=== PATIENT | female | born 1940 | race Caucasian/White ===

== ENCOUNTER 2017-12-16 14:35 | Emergency (ER) | payer MEDICARE ==
[~2017-12-16] VITALS: Ht 162.6 cm; Wt 67.8 kg
[~2017-12-16 14:35] MED LIST: CALCCAP4; CARB300C2 PO; DIOV80TA4 PO; LEVE500T10 PO; PROP60CA PO; TAB-TAB PO; VITA-13 PO
[2017-12-16 14:40] VITALS: BP 211/100; PULSE 64; RESP 18; TEMP 97.8; O2SAT 96
[2017-12-16] MEDS ORDERED: VALS1TAB64 PO (14:53)
[2017-12-16] MEDS ORDERED: CARB300C7 PO ×2 (14:53)
[2017-12-16] MEDS ORDERED: PROP60CA PO (14:53)
[2017-12-16] MEDS ORDERED: LEVE500T8 PO (14:53)
[2017-12-16] MEDS ORDERED: FOSA70TA PO (14:54)
--- NOTE | 2017-12-16 15:32 | PD ---
HPI . Right lower extremity swelling Chief Complaint: Hypertension Time Seen by Provider: 14:53 Travel History International Travel<30 days: No Contact w/Intl Traveler<30days: No Traveled to known affect area: No History of Present Illness HPI Patient presents with chief complaint of swelling of her right leg. Onset was a week ago. Her swelling gets worse after she has been up on her leg all day and gets better after sleeping at night. She states that the swelling does not ever go completely away. She is concerned that the swelling is secondary to a new medication. She is was recently started on Fosamax for osteoporosis. That was started on 11/23. In addition, the patient reports that her blood pressure is labile. She does not have any chest pain. She reports chronic shortness of breath. It is unchanged. She has no neurological complaints. PFSH Past Medical History Asthma: Yes Heart Rhythm Problems: No Cancer: Yes (SKIN) Cardiovascular Problems: Yes High Cholesterol: No Chest Pain: No Congestive Heart Failure: No COPD: Yes Cerebrovascular Accident: No Diabetes: No Diminished Hearing: No Endocrine: No Gastrointestinal Disorders: Yes GERD: No Genitourinary: Yes Hepatitis: No Hiatal Hernia: No Hypertension: Yes Immune Disorder: Yes (SHINGLES) Kidney Stones: No Musculoskeletal: No Neurologic: Yes Psychiatric: No Reproductive: No Respiratory: Yes Immunizations Current: Yes Migraines: No Renal Failure: No Seizures: Yes Sleep Apnea: No Thyroid Disease: No Ulcer: No Tubal Ligation: Yes Past Surgical History Abdominal Surgery: No AICD: No Cardiac Surgery: No Ear Surgery: No Endocrine Surgery: Yes (THYROIDECTOMY) Eye Surgery: No Genitourinary Surgery: No Gynecologic Surgery: Yes (HYSTERECTOMY) Hysterectomy: Yes Joint Replacement: No Neurologic Surgery: Yes (FOR SEIZURES 2001, BRAIN SURGERY 1999) Oral Surgery: No Pacemaker: No Thoracic Surgery: Yes (WEDGE RESECTION RT LUNG) Tonsillectomy: Yes Other Surgery: Yes Social History Alcohol Use: No Tobacco Use: No Substance Use: No Allergies-Medications (Allergen,Severity, Reaction): Coded Allergies: Sulfa (Sulfonamide Antibiotics) (Unverified Allergy, Severe, GRAND MAL SEIZURES, 12/16/17) codeine (Unverified Allergy, Severe, GRAND MAL SEIZURE, 12/16/17) Reported Meds & Prescriptions Reported Meds & Active Scripts Active Reported Fosamax (Alendronate Sodium) 70 Mg Tab 70 Mg PO Q7D Carbamazepine ER 12 HR (Carbamazepine) 300 Mg Cap 300 Mg PO HS Carbamazepine ER 12 HR (Carbamazepine) 300 Mg Cap 600 Mg PO DAILY Propranolol ER 24 HR (Propranolol HCl) 60 Mg Cap 60 Mg PO DAILY Levetiracetam 500 Mg Tab 500 Mg PO BID Valsartan 80 Mg Tab 80 Mg PO BID Review of Systems Except as stated in HPI: all other systems reviewed are Neg HENT: No: Headaches Cardiovascular: No: Chest Pain or Discomfort Respiratory: Positive: Shortness of Breath (Chronic shortness of breath) Musculoskeletal: Positive: Arthralgias, Edema Physical Exam Narrative GENERAL: Awake and alert and in no distress. SKIN: warm/dry. Normal skin color. HEAD: Normocephalic. Atraumatic. EYES: Pupils equal and round. Extraocular movements are intact. ENT: Mucous membranes pink and moist. NECK: Supple. Full range of motion without pain.. CARDIOVASCULAR: Regular rate and rhythm. Heart sounds are normal. RESPIRATORY: No accessory muscle use. Clear to auscultation. Breath sounds are diminished on the left. MUSCULOSKELETAL: No obvious deformities. Normal muscle tone. She has visible swelling of the right lower extremity. She has some tenderness of both the right knee and right ankle. There is no deformity. She is distally neurovascularly intact. NEUROLOGICAL: Awake and alert. No obvious cranial nerve deficits. Motor grossly within normal limits. Normal speech. PSYCHIATRIC: Appropriate mood and affect; insight and judgment normal. Data Data Last Documented VS Vital Signs Date Time Temp Pulse Resp B/P (MAP) Pulse Ox O2 Delivery O2 Flow Rate FiO2 12/16/17 14:40 97.8 64 18 211/100 (137) 96 Orders Orders Ankle, Complete (Oop4rtf) (12/16/17 15:09) Knee, Complete (4vws) (12/16/17 15:09) Us Leg Venous Doppler (12/16/17 15:09) [facility] Medical Decision Making Medical Screen Exam Complete: Yes Emergency Medical Condition: Yes Differential Diagnosis Differential diagnosis of leg pain includes but is not limited to lumbar radiculopathy, arthritis, myalgias, DVT. Narrative Course This patient presents with pain and swelling of her right lower leg. An x-ray of her knee and ankle are pending as is an ultrasound of her leg. Last Impressions Lower Extremity Ultrasound 12/16/17 6661 Signed Impressions: CONCLUSION: The study is negative for lower extremity deep venous thrombosis. Knee X-Ray 12/16/17 1509 Signed Impressions: CONCLUSION: Chronic changes and no definite fracture for technique. Ankle X-Ray 12/16/17 1509 Signed Impressions: CONCLUSION: Slight osteopenia and diffuse edema. I suspect that her symptoms are related to arthritis. Diagnosis Primary Impression: Right leg swelling Additional Impression: Arthritis Patient Instructions: Arthritis (ED), General Instructions Additional Instructions: I suggest ice and elevation for pain and swelling of your leg. Disposition: 01 DISCHARGE HOME Condition: Stable Irina Mcdonald MD Dec 16, 2017 15:32
--- NOTE | 2017-12-16 15:52 | RADRPT ---
EXAM DATE: 12/16/2017 3:38 PM EDT AGE/SEX: 77 years / Female INDICATIONS: Right knee pain, swelling for 2 days with no known injury CLINICAL DATA: This is the patient's initial encounter. Patient reports that signs and symptoms have been present for 2 days and indicates a pain score of 5/10. MEDICAL/SURGICAL HISTORY: None. None. COMPARISON: No prior exams available for comparison. FINDINGS: No definite fractures, or dislocations are identified. No definite lytic or sclerotic les ion is seen. Moderate osteopenia is seen. Significant degenerative arthritis is seen in the lateral c ompartment, to a slight degree medial compartment and patellofemoral joint. CONCLUSION: Chronic changes and no definite fracture for technique. Electronically signed by: Lisa Jackson MD 12/16/2017 3:51 PM EDT
--- NOTE | 2017-12-16 15:52 | RADRPT ---
EXAM DATE: 12/16/2017 3:32 PM EDT AGE/SEX: 77 years / Female INDICATIONS: Right ankle pain, swelling for 2 days with no known injury CLINICAL DATA: This is the patient's initial encounter. Patient reports that signs and symptoms have been present for 1 day and indicates a pain score of 5/10. MEDICAL/SURGICAL HISTORY: None. None. COMPARISON: No prior exams available for comparison. FINDINGS: No definite fractures, or dislocations are identified. No definite lytic or sclerotic les ion is seen. Slight osteopenia is seen. Diffuse subcutaneous edema is seen. CONCLUSION: Slight osteopenia and diffuse edema. Electronically signed by: Lisa Jackson MD 12/16/2017 3:50 PM EDT
--- NOTE | 2017-12-16 15:54 | RADRPT ---
EXAM DATE: 12/16/2017 3:44 PM EDT AGE/SEX: 77 years / Female INDICATIONS: Swelling right leg. CLINICAL DATA: This is the patient's initial encounter. Patient reports that signs and symptoms have been present for 1 day and indicates a pain score of 0/10. MEDICAL/SURGICAL HISTORY: Chronic obstructive pulmonary disease. Hypertension. Asthma. Skin can cer. Seizures. Pleural effusion right lung. Shingles. Sarcoidosis. Post-inflammatory pulmonary fibros is. Bronchiectasis. Tonsillectomy. Hysterectomy. Tubal ligation. Thyroidectomy. Wedge resection R T lung. Brain surgery. COMPARISON: No prior [place] exams available for comparison. TECHNIQUE: Venous ultrasound of both lower extremities was performed from the inguinal ligament to t he proximal calf. Real-time, color Doppler and spectral tracing, compression and augmentation techni ques were used. FINDINGS: There is normal compressibility of the deep venous system from the inguinal region to the proximal ca lf. No echogenic clot is seen in the lumen of the common femoral, femoral, popliteal, and posterior tibial veins. There is a normal response of the venous system to proximal and distal augmentation an d respiration. CONCLUSION: The study is negative for lower extremity deep venous thrombosis. Electronically signed by: Gurjit Birch MD 12/16/2017 3:53 PM EDT
[2017-12-16 16:16] VITALS: BP 188/80
== END 2017-12-16 16:17 | disposition home or self-care (01) ==
LOC: PHED 14:35
DX: M19.90 Unspecified osteoarthritis, unspecified site (principal); I10 Essential (primary) hypertension; J44.9 Chronic obstructive pulmonary disease, unspecified; M81.0 Age-related osteoporosis without current pathological fracture; Z85.828 Personal history of other malignant neoplasm of skin
CPT/HCPCS: 73564; 73610; 93971; 99284

== ENCOUNTER 2018-07-12 08:59 | Observation (INO) ==
--- NOTE | 2018-07-12 09:30 | ED ---
HPI General Chief Complaint: Shortness of Breath/Dyspnea Stated Complaint: SoB Time Seen by Provider: 07/12/18 09:06 Source: patient Mode of arrival: ambulatory Limitations: no limitations History of Present Illness 78 yo F c/o dyspnea overnight with cough. Orthopnea reported and [place]. No cp. No fever. Copious mucous production reported from a few days ago. Urination normal. Duration about 12 hours. Timing constant. PMH includes epilepsy and HTN. Related Data Home Medications Medication Instructions Recorded Confirmed carbamazepine 300 mg PO BID 07/12/18 07/12/18 levetiracetam 500 mg PO DAILY NEB 07/12/18 07/12/18 propranolol 1 mg/kg PO DAILY 07/12/18 07/12/18 valsartan 80 mg PO DAILY 07/12/18 07/12/18 Allergies Allergy/AdvReac Type Severity Reaction Status Date / Time codeine Allergy Severe GRAND MAL Unverified 12/16/17 14:37 SEIZURE Sulfa (Sulfonamide Allergy Severe GRAND MAL Unverified 12/16/17 14:37 Antibiotics) SEIZURES Review of Systems ROS: all other systems reviewed are negative [facility] Medical History Medical History HTN (hypertension) (Acute) Lung anomaly, congenital (Acute) Seizure (Acute) Social History Social History Substance History: No History of Abuse Second Hand Smoke Exposure: No Smoking Status: Never smoker Tobacco Type: Cigarettes How Often Do You Have a Drink Containing Alcohol: Never Recent Travel in [facility] within the Last 8 Weeks: No Recent Out of Country Travel within the Last 8 Weeks: No Immunization History Tetanus Immunization: Unsure Exam Narrative Exam Narrative: GENERAL: 78 yo F, pleasant, conversational dyspnea SKIN: Focused skin assessment warm/dry. HEAD: Atraumatic. Normocephalic. EYES: Pupils equal and round. No scleral icterus. No injection or drainage. ENT: No nasal bleeding or discharge. Mucous membranes pink and moist. NECK: Trachea midline. No JVD. CARDIOVASCULAR: Regular rate and rhythm. No murmur appreciated. RESPIRATORY: No accessory muscle use. Clear to auscultation. Breath sounds equal bilaterally. GASTROINTESTINAL: Abdomen soft, non-tender, nondistended. Hepatic and splenic margins not palpable. MUSCULOSKELETAL: No obvious deformities. No clubbing. No cyanosis. No edema. NEUROLOGICAL: Awake and alert. No obvious cranial nerve deficits. Motor grossly within normal limits. Normal speech. PSYCHIATRIC: Appropriate mood and affect; insight and judgment normal. Course Initial Documented Vital Signs Temperature 98.6 F 07/12/18 09:02 Pulse Rate 70 07/12/18 09:02 Respiratory Rate 18 07/12/18 09:02 Blood Pressure 205/113 H 07/12/18 09:02 Pulse Oximetry 98 07/12/18 09:02 Last Documented Vital Signs Temperature 98.9 F 07/12/18 11:37 Pulse Rate 70 07/12/18 12:13 Respiratory Rate 18 07/12/18 12:13 Blood Pressure 177/103 H 07/12/18 12:13 Pulse Oximetry 98 07/12/18 12:13 Medical Decision Making MDM Narrative Medical decision making narrative: EKG sinus rate 67 incomplete RBBB BNP 37 Alk phos 214 Na 131 Cl 95 CBC essentially normal CXR no acute disease Influenza negative Pt ambulated in Ed approximately 40 feet. O2 sat 85% on RA upon return to room. + Dyspnea with test of ambulation. Call to [facility] for admission d/w Dr Marcelino Pt reassessed at 111pm and reports worsening cough after nebulizer treatment. Medical Screen Exam Complete: Yes Emergency Medical Condition: Yes Lab Data Result diagrams: 07/12/18 09:20 07/12/18 09:20 Lab Results 07/12/18 07/12/18 07/12/18 Range/Units 09:20 09:20 09:20 WBC 8.5 (4.0-11.0) th/mm3 RBC 4.47 (4.00-5.30) mil/mm3 Hgb 13.8 (11.6-15.3) gm/dL Hct 40.1 (35.0-46.0) % MCV 89.8 (80.0-100.0) fL MCH 31.0 (27.0-34.0) pg MCHC 34.5 (32.0-36.0) % RDW 13.5 (11.6-17.2) % Plt Count 226 (150-450) th/mm3 MPV 8.2 (7.0-11.0) fL Neut % (Auto) 82.4 H (16.0-70.0) % Lymph % (Auto) 5.1 L (9.0-44.0) % Swisher % (Auto) 10.2 H (0.0-8.0) % Eos % (Auto) 1.6 (0.0-4.0) % Baso % (Auto) 0.7 (0.0-2.0) % Neut # (Auto) 7.0 (1.8-7.7) th/mm3 Lymph # (Auto) 0.4 L (1.0-4.8) th/mm3 Swisher # (Auto) 0.9 (0.0-0.9) th/mm3 Eos # (Auto) 0.1 (0.0-0.4) th/mm3 Baso # (Auto) 0.1 (0.0-0.2) th/mm3 WBC Differential . Differential Comment Auto diff final Sodium 131 L (136-145) meq/L Potassium 3.7 (3.5-5.1) meq/L Chloride 95 L (98-107) meq/L Carbon Dioxide 27.3 (21.0-32.0) meq/L Anion Gap 9 (5-15) meq/L BUN 13 (7-18) mg/dL Creatinine 0.75 (0.50-1.00) mg/dL Estimated GFR 75 L (>89) mL/min Random Glucose 125 H (74-106) mg/dL Calcium 8.7 (8.5-10.1) mg/dL Total Bilirubin 0.5 (0.2-1.0) mg/dL AST 28 (15-37) U/L ALT 24 (10-53) U/L Alkaline Phosphatase 214 H (45-117) U/L Troponin I Less than 0.02 L (0.02-0.05) ng/mL B-Natriuretic Peptide 37 (0-100) pg/mL Total Protein 7.6 (6.4-8.2) g/dL Albumin 3.7 (3.4-5.0) g/dL Imaging Data Radiologist's impression: Chest X-Ray 07/12/18 09:15 CONCLUSION: Hyperinflated but clear. Discharge Plan Discharge Disposition Patient Disposition: ED Admit(ED Internal Use Only) Discharge Order Discharge Orders: ED Use Only Admit Order (Routine); Ordered 07/12/18 Ordered By: Nj Hendrickson Physicians Team ED Provider: Nj Hendrickson Primary Care Provider: Robert Roldan Attending Provider: Kevin Marcelino Status ED Status: Admitted Observation Patient
[2018-07-12 09:44] LABS: Baso # (Auto) 0.1 th/mm3 (0.0-0.2); Baso % (Auto) 0.7 % (0.0-2.0); Eos # (Auto) 0.1 th/mm3 (0.0-0.4); Eos % (Auto) 1.6 % (0.0-4.0); Hematocrit 40.1 % (35.0-46.0); Hemoglobin 13.8 gm/dL (11.6-15.3); Lymph # (Auto) 0.4 th/mm3 (1.0-4.8); Lymph % (Auto) 5.1 % (9.0-44.0); Mean Corpuscular HGB Conc 34.5 % (32.0-36.0); Mean Corpuscular Volume 89.8 fL (80.0-100.0); Mean Platelet Volume 8.2 fL (7.0-11.0); Mono # (Auto) 0.9 th/mm3 (0.0-0.9); Mono % (Auto) 10.2 % (0.0-8.0); Neut % (Auto) 82.4 % (16.0-70.0); Platelet Count 226 th/mm3 (150-450); Red Blood Count 4.47 mil/mm3 (4.00-5.30); Red Cell Distribution Width 13.5 % (11.6-17.2); White Blood Count 8.5 th/mm3 (4.0-11.0)
--- NOTE | 2018-07-12 09:58 | XR ---
EXAM DATE: 07/12/2018 9:45 AM EST AGE/SEX: 78 years / Female INDICATIONS: Coughing, short of breath and elevated blood pressure for 3 days CLINICAL DATA: This is the patient's initial encounter. Patient reports that signs and symptoms have been present for 3 days and indicates a pain score of 0/10. MEDICAL/SURGICAL HISTORY: Chronic obstructive pulmonary disease. Hypertension. Asthma. sarco idosis, prior history of empyema Thyroidectomy. Tonsillectomy. Tubal ligation. wedge resection of right lung COMPARISON: [facility] [place], CHEST EXPIRATION ONLY, 10/03/2014. . FINDINGS: Lungs are moderately hyperinflated but clear. The heart and pulmonary vascularity are normal. The portion of the bony skeleton visualized is unremarkable. CONCLUSION: Hyperinflated but clear. Electronically signed by: Avinash Cary MD Board Certified Radiologist 07/12/2018 9:57 AM EST
[2018-07-12 10:04] LABS: Alanine Aminotransferase 24 U/L (10-53); Albumin 3.7 g/dL (3.4-5.0); Anion Gap 9 meq/L (5-15); Aspartate Aminotransferase 28 U/L (15-37); Blood Urea Nitrogen 13 mg/dL (7-18); Calcium 8.7 mg/dL (8.5-10.1); Carbon Dioxide 27.3 meq/L (21.0-32.0); Chloride 95 meq/L (98-107); Glomerular Filtration Rate 75 mL/min (>89); Glucose,Random 125 mg/dL (74-106); Potassium 3.7 meq/L (3.5-5.1); Sodium 131 meq/L (136-145)
[2018-07-12 10:08] LABS: Alkaline Phosphatase 214 U/L (45-117); Total Protein 7.6 g/dL (6.4-8.2)
[2018-07-12] MEDS ORDERED: Acetaminophen 325 MG Tablet PO PRN (11:39)
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
--- NOTE | 2018-07-12 14:40 | ECG ---
Date Performed: 07/12/2018 Time Performed: 09:06:20 PTAGE: 78 years EKG: Sinus rhythm INCOMPLETE RIGHT BUNDLE BRANCH BLOCK BORDERLINE ECG PREVIOUS TRACING : 09/22/2014 19.28 No change from previous tracing noted. DOCTOR: Simone Schrader Interpretating Date/Time 07/12/2018 14:38:54
[2018-07-12] MEDS: levETIRAcetam 500 MG Tablet PO SCH (14:59)
[2018-07-12] MEDS: levoFLOXacin 500 MG Tablet PO SCH (14:59)
[2018-07-12] MEDS: Propranolol LA 60 MG Capsule PO SCH (15:00)
[2018-07-12] MEDS: Enoxaparin Inj 30 MG/0.3 ML Syringe SQ SCH (15:00)
[2018-07-12] MEDS: carBAMazepine 100 MG Chewable Tablets PO SCH ×2 (15:00→20:52)
[2018-07-12] MEDS: KCL 20 mEq/NACL 0.45% Inj 1,000 ML IV.CONT SCH (15:00)
--- NOTE | 2018-07-12 17:05 | CT ---
EXAM DATE: 07/12/2018 4:57 PM EST AGE/SEX: 78 years / Female INDICATIONS: Shortness of breath. CLINICAL DATA: This is the patient's initial encounter. Patient reports that signs and symptoms have been present for 1 day and indicates a pain score of 2/10. MEDICAL/SURGICAL HISTORY: Hypertension. Seizures. Non-responsive. RADIATION DOSE: 5.68 CTDI (mGy) COMPARISON: [facility], CT CHEST W/O CONTRAST, 11/27/2014. . TECHNIQUE: Multiple contiguous axial images were obtained through the chest during bolus infusion of 70 ml Omnipaque 350 (iohexol) nonionic water-soluble contrast as a single exam dose. Images were obtained in suspended respiration using multiple row detector helical technique. Using automated exp osure control and adjustment of the mA and/or kV according to patient size, radiation dose was kept a s low as reasonably achievable to obtain optimal diagnostic quality images. DICOM format image data is available electronically for review and comparison. FINDINGS: Lungs: Bronchiectasis with peribronchial scarring and small chronic nodular densities are identified in the right middle lobe and right lower lobe. A 6 mm nodule is identified in the left upper lobe adjacent to the mediastinum. This was not seen on the previous study. There is no evidence of consolidating airspace disease. Lungs are hyperinflated. Mediastinum: There is good visualization of the great vessels of the middle mediastinum. No evidenc e of mediastinal or hilar adenopathy/mass. Pleurae: No evidence of focal thickening or pleural effusion. Axillae: Unremarkable. Bony Structures: Chronic mid thoracic compression fractures are noted. Miscellaneous: The examination was extended to include the upper abdomen, and both adrenal glands ar e normal in size and configuration. CONCLUSION: 1. COPD with bronchiectasis and stable peribronchial scarring especially throughout the right lung. 2. New 6 mm nodule in the left upper lobe more than likely representing the same process however thi s was not seen previously and surveillance is recommended with 6 month follow-up. 3. No evidence of acute airspace disease or congestion. 4. Chronic mid thoracic compression fractures. Electronically signed by: Alfie Barraza MD Board Certified Radiologist 07/12/2018 5:04 PM EST
[2018-07-12] MEDS: Loratadine 10 MG Tablet PO SCH (18:33)
[2018-07-12] MEDS: Senna/Docusate Sodium 8.6/50 MG Tablet PO SCH (20:50)
[2018-07-12] MEDS: guaiFENesin 600 MG ER Tablet PO SCH (20:53)
[2018-07-13] MEDS: KCL 20 mEq/NACL 0.45% Inj 1,000 ML IV.CONT SCH (03:56)
[2018-07-13 08:22] LABS: Bilirubin,Urine Negative (Negative); Clarity,Urine Clear (Clear); Color,Urine Yellow (Yellw/Straw); Glucose,Urine (UA) Negative (Negative); Leukocyte Esterase,Urine Negative (Negative); Mucus,Urine Few /lpf (Occasional); Nitrite,Urine Negative (Negative); Specific Gravity,Urine 1.021 (1.002-1.035); Squamous Epithelial Cell,Urine <1 /hpf (0-5)
[2018-07-13] MEDS ORDERED: VALSARTAN 80 MG PO SCH (09:00)
--- NOTE | 2018-07-13 09:01 | P.PNIM ---
Subjective Interval history: Pt reports that she feels a bit better today overall. She slept better but does not feel that she is back to her baseline as far as her respiratory status goes. Pt has been afebrile. Physical Exam Vital signs: Last Vital Signs Temp 98.1 F 07/13/18 08:00 Pulse 78 07/13/18 08:11 Resp 18 07/13/18 08:11 BP 172/97 H 07/13/18 08:00 Pulse Ox 98 07/13/18 08:11 Narrative: GENERAL: NAD, AAOx3 CARDIO: Regular RESP: Crackles at the right base ABD: +BS, soft, non-tender, nondistended. EXT: Extremities without clubbing, cyanosis, or edema. No obvious deformities. Results Labs CBC & Chem 7: 07/13/18 08:30 07/13/18 08:[address] 07/12/18 00:00 CONCLUSION: 1. COPD with bronchiectasis and stable peribronchial scarring especially throughout the right lung. 2. New 6 mm nodule in the left upper lobe more than likely representing the same process however this was not seen previously and surveillance is recommended with 6 month follow-up. 3. No evidence of acute airspace disease or congestion. 4. Chronic mid thoracic compression fractures. Chest X-Ray 07/12/18 09:15 CONCLUSION: Hyperinflated but clear. Assessment and Plan Assessment (1) COPD (chronic obstructive pulmonary disease): Code(s): J44.9 - Chronic obstructive pulmonary disease, unspecified Status: Chronic (2) Sarcoidosis of lung: Code(s): D86.0 - Sarcoidosis of lung Status: Chronic (3) Hypoxia: Code(s): R09.02 - Hypoxemia Status: Acute (4) HTN (hypertension): Code(s): I10 - Essential (primary) hypertension Status: Chronic (5) Hx of seizure disorder: Code(s): Z86.69 - Personal history of other diseases of the nervous system and sense organs Status: Chronic Plan URI Hypoxia COPD Hx of Sarcoidosis - Pt is a 78 y/o WF with COPD, pulmonary sarcoidosis, HTN, seizure disorder, and hypothyroidism. - She presented to the ED at [facility] [place] on 07/12/18 with complaints of worsening SOB. She states that for the last 2-3 days she has had worsening SOB with exertion as well as at night and orthopnea. Pt has had associated reported sinus congestion, post nasal drip with yellow and green colored mucous and cough. Some sore throat more today. Pt reports some some subjective fevers and chills but did not take her temperature. - In the ED the pt was hypoxic with ambulation with O2 sats in the mid 80's requiring supplemental O2 and dyspnea with test of ambulation. - CXR in the ED was hyperinflated by clear - It seems that the pt likely developed a recent URI which may have exacerbated her COPD in the setting of pulmonary sarcoidosis. - She is currently on 2L of supplemental O2 and she may require continued supplemental O2 as an outpt. She reports that her Baby Nurse, Dr. Rajan, had previously talked to her about possibly needing supplemental O2 in the near future. - Chest CT (07/12/18): 1. COPD with bronchiectasis and stable peribronchial scarring especially throughout the right lung. 2. New 6 mm nodule in the left upper lobe more than likely representing the same process however this was not seen previously and surveillance is recommended with 6 month follow-up. 3. No evidence of acute airspace disease or congestion. 4. Chronic mid thoracic compression fractures. - Cont. Levaquin 500mg po daily and Duonebs Q6H WA - Claritin 10mg po daily - Mucinex 600mg po BID - Blood cultures are pending - Urine for legionella and pneumococcal Ag are pending. - Supportive care - Pt will likely need a walk test to set up home O2 if she is unable to be weaned off the O2 - DVT prophylaxis with Lovenox HTN - Home meds continued Hx of seizure disorder - Home meds continued Attending Attestation The exam, history, and the medical decision-making described in the above note were completed with the assistance of the mid-level provider. I reviewed and agree with the findings presented. I attest that I had a [id number] encounter with the patient on the same day, and personally performed and documented my assessment and findings in the medical record. Patient examined. Assessment and plan formulated with Hannah Marcus PA-C. I agree with the above. Pt c/o continued paroxysmal coughing fits. Per pt coughing fits can last for several hours. Nurse also verifies that pt having prolonged coughing spells. solumedrol 125mg IV x once, then 60mg IV bid Case d/w Case Mgmt. Walk Test ordered. Pt will likely require home oxygen upon discharge. Progress Note: Quality VTE Deep Vein Thrombosis/Pulmonary Embolism Present on Admission: No
[2018-07-13 09:37] LABS: Baso # (Auto) 0.1 th/mm3 (0.0-0.2); Baso % (Auto) 0.5 % (0.0-2.0); Eos # (Auto) 0.1 th/mm3 (0.0-0.4); Eos % (Auto) 1.1 % (0.0-4.0); Hematocrit 39.6 % (35.0-46.0); Hemoglobin 13.6 gm/dL (11.6-15.3); Lymph # (Auto) 0.8 th/mm3 (1.0-4.8); Mean Corpuscular HGB Conc 34.4 % (32.0-36.0); Mean Corpuscular Hemoglobin 31.2 pg (27.0-34.0); Mean Corpuscular Volume 90.7 fL (80.0-100.0); Mean Platelet Volume 8.2 fL (7.0-11.0); Mono # (Auto) 1.1 th/mm3 (0.0-0.9); Mono % (Auto) 11.4 % (0.0-8.0); Neut # (Auto) 7.5 th/mm3 (1.8-7.7); Platelet Count 202 th/mm3 (150-450); Red Blood Count 4.37 mil/mm3 (4.00-5.30); Red Cell Distribution Width 13.3 % (11.6-17.2); White Blood Count 9.5 th/mm3 (4.0-11.0)
[2018-07-13] MEDS: Senna/Docusate Sodium 8.6/50 MG Tablet PO SCH ×2 (09:49→20:51)
[2018-07-13] MEDS: carBAMazepine 100 MG Chewable Tablets PO SCH ×2 (09:49→20:51)
[2018-07-13] MEDS: Propranolol LA 60 MG Capsule PO SCH (09:50)
[2018-07-13] MEDS: guaiFENesin 600 MG ER Tablet PO SCH ×2 (09:50→20:51)
[2018-07-13] MEDS: Loratadine 10 MG Tablet PO SCH (09:50)
[2018-07-13] MEDS: levETIRAcetam 500 MG Tablet PO SCH (09:50)
[2018-07-13 10:01] LABS: Calcium 8.6 mg/dL (8.5-10.1); Carbon Dioxide 28.8 meq/L (21.0-32.0); Potassium 4.1 meq/L (3.5-5.1)
--- NOTE | 2018-07-13 10:45 | XR ---
EXAM DATE: 07/13/2018 10:43 AM EST AGE/SEX: 78 years / Female INDICATIONS: . Congestion with shortness of breath. CLINICAL DATA: This is the patient's subsequent encounter. Patient reports that signs and symptoms h ave been present for 3 days and indicates a pain score of 0/10. MEDICAL/SURGICAL HISTORY: Hypertension. Chronic obstructive pulmonary disease. . COMPARISON: [facility] [place] 1V SINGLE AP, 07/12/2018. . FINDINGS: PA and lateral views of the chest demonstrate the lungs to be hyperinflated without evidence of mass, infiltrate or effusion. The cardiomediastinal contours are unremarkable. Kyphosis with compression d eformities of mid thoracic spine. CONCLUSION: 1. Hyperinflation without infiltrate. 2. Kyphosis with compression deformities of the midthoracic spine. Electronically signed by: Tommy Palafox MD Board Certified Radiologist 07/13/2018 10:44 AM EST
[2018-07-13] MEDS ORDERED: MethylPREDNISolone Sod Succinate Inj 125 MG/2 ML Vial IV.PUSH ONE (12:01)
[2018-07-13] MEDS ORDERED: Benzonatate 100 MG Capsule PO PRN (12:03)
[2018-07-13] MEDS: levoFLOXacin 500 MG Tablet PO SCH (13:11)
[2018-07-13] MEDS: Enoxaparin Inj 30 MG/0.3 ML Syringe SQ SCH (13:11)
[2018-07-13] MEDS: MethylPREDNISolone Sod Succinate Inj 125 MG/2 ML Vial IV.PUSH SCH (20:50)
[2018-07-14 07:38] VITALS: RESP 20
[2018-07-14] MEDS: levETIRAcetam 500 MG Tablet PO SCH (10:05)
[2018-07-14] MEDS: Propranolol LA 60 MG Capsule PO SCH (10:05)
[2018-07-14] MEDS: Loratadine 10 MG Tablet PO SCH (10:05)
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
[2018-07-14] MEDS: guaiFENesin 600 MG ER Tablet PO SCH (10:06)
[2018-07-14] MEDS: carBAMazepine 100 MG Chewable Tablets PO SCH (10:06)
[2018-07-14] MEDS: Senna/Docusate Sodium 8.6/50 MG Tablet PO SCH (10:07)
[2018-07-14] MEDS: MethylPREDNISolone Sod Succinate Inj 125 MG/2 ML Vial IV.PUSH SCH (10:07)
[2018-07-14 11:50] VITALS: BP 118/64; PULSE 69; TEMP 98.7; O2SAT 94
[2018-07-14] MEDS: Enoxaparin Inj 30 MG/0.3 ML Syringe SQ SCH (13:15)
[2018-07-14] MEDS: levoFLOXacin 500 MG Tablet PO SCH (14:16)
== END 2018-07-14 14:28 | disposition home or self-care (01) ==
LOC: NEPE 08:59 → NEDA 08:59 → NEPGCP 14:50
PROVIDERS: ADMIT Hospitalist; ATTEND Hospitalist
CPT/HCPCS: 71010; 71020; 71045; 71046; 71260; 80048; 80053; 81001; 83520; 83880; 84484; 85025; 87015; 87040; 87116; 87275; 87276; 87449; 87804; 93005; 94618; 94620; 94640; 94664; 94665; 96365; 96366; 96375; 96376; 97162; 99285; G0378; G8987; G8988; J1650; J2930; Q9967